=== PATIENT | female | born 1960 ===

== ENCOUNTER 2020-09-30 10:40 | Outpatient (CLI) | payer BC ==
--- NOTE | 2020-09-30 11:55 | CT ---
CT abdomen and pelvis noncontrast HISTORY: Pelvic mass. FINDINGS: No comparison. Small sliding hiatal hernia. Minimal scarring at the right posterior lung ba se. Solid organs of the abdomen are within normal limits allowing for lack of contrast. A very large, heterogeneous mass centered within the pelvis and favored to represent an enlarged uter us measures up to 23.3 cm length by 17.7 cm width by 9.1 cm depth. Lobular internal fluid density has the appearance of distended endometrial cavity. Fairly large multifocal linear area of dystrophic calcification within the posterior margin, 5.0 cm greatest length. A 0.7 cm rounded focus of dystrophic calcification within a fluid pocket at the anterior aspect of the mass. Minimal free fluid in the dependent portion of the pelvis. Urinary bladder is compressed anteriorly b y the mass. No evidence of bowel obstruction or inflammation. IMPRESSION : Very large heterogeneous mass/abnormality arising from the uterus. While severe fibroid disease may b e the cause, the appearance, size, and small amount of free fluid raises concern for a malignancy/aggressive process. Please consider gynecologic evaluation and MRI of the pelvis, without and with gadolinium contrast, f or better characterization.
== END 2020-09-30 10:41 | disposition home or self-care (01) ==
LOC: MADCT 10:40
PROVIDERS: ATTEND Family Medicine
DX: R19.00 Intra-abdominal and pelvic swelling, mass and lump, unspecified site (principal)
CPT/HCPCS: 74176

== ENCOUNTER 2022-11-13 12:37 | Outpatient (CLI) | payer BC ==
[2022-11-13 13:15] LABS: ALT (SGPT) 19 U/L (8-55); AST (SGOT) 22 U/L (5-34); Albumin 4.4 g/dL (3.4-4.8); Alkaline Phosphatase 100 U/L (40-110); Anion Gap 13 mmol/L (10-20); BUN (Urea Nitrogen) 18 mg/dL (9.8-20.1); Bilirubin, Total 0.6 mg/dL (0.2-1.2); Calc. Creatinine Clearance 0 mL/min (70-130); Calcium 10.6 mg/dL (7.8-10.44); Carbon Dioxide 28 mmol/L (23-31); Chloride 103 mmol/L (98-107); Estimated GFR 72; Globulin 3.6 g/dL (2.4-3.5); Glucose 96 mg/dL (80-115); Sodium 140 mmol/L (136-145)
[2022-11-13 16:27] LABS: #Eosinphils 0.3 thou/uL (0.0-0.7); #Lymphocytes 1.4 thou/uL (1.20-3.40); #Monocytes 0.4 thou/uL (0.11-0.59); #Neutrophils 5.4 thou/uL (1.40-6.50); %Basophils 0.6 % (0.0-1.0); %Eosinophils 4.6 % (0.0-10.0); %Lymphocytes 18.7 % (21.0-51.0); %Monocytes 5.1 % (0.0-10.0); Mean Corpuscular HGB CONC 32.9 g/dL (32.0-36.0); Mean Corpuscular Hemoglobin 31.3 pg (27.0-31.0); Mean Corpuscular Volume 95.4 fl (78.0-98.0); Mean Platelet Volume 9.4 fL (7.4-10.4); Platelet Count 276 10x3/uL (130-400); Red Blood Cell (RBC) Count 4.14 mill/uL (4.20-5.40); White Blood Cell (WBC) Count 7.6 10x3/uL (4.8-10.8)
== END 2022-11-13 12:38 | disposition home or self-care (01) ==
LOC: MADLAB 12:37
PROVIDERS: ATTEND Internal Medicine
DX: J45.51 Severe persistent asthma with (acute) exacerbation (principal); E03.9 Hypothyroidism, unspecified; I10 Essential (primary) hypertension; R91.1 Solitary pulmonary nodule
CPT/HCPCS: 36415; 70220; 71046; 80053; 80198; 84436; 84443; 85025